=== PATIENT | male | born 1985 | race Caucasian/White ===

== ENCOUNTER 2020-05-19 17:32 | Inpatient (IN) | payer MEDICAID ==
[~2020-05-19] VITALS: Ht 177.8 cm; Wt 104.3 kg
[2020-05-19 17:54] LABS: BASOPHILS # (AUTO) 0.1 /CMM (0.0-0.2); BASOPHILS % (AUTO) 0.6 % (0.0-2.0); EOSINOPHILS % (AUTO) 0.5 % (0.0-6.0); HEMATOCRIT 46 % (39-51); HEMOGLOBIN 15.5 g/dL (13.5-17.5); LYMPHOCYTES # (AUTO) 2.9 /CMM (0.8-4.8); LYMPHOCYTES % (AUTO) 30.3 % (20.0-44.0); MEAN CORPUSCULAR HGB CONC 34 g/dl (31.0-36.0); MEAN CORPUSCULAR VOLUME 85 fL (80-96); MONOCYTES # (AUTO) 0.6 /CMM (0.1-1.30); MONOCYTES % (AUTO) 6.7 % (2.0-12.0); NEUTROPHILS % (AUTO) 61.9 % (43.0-81.0); PLATELET COUNT (AUTO) 271 /CMM (150-450); RED BLOOD CELL COUNT(AUTO) 5.35 MIL/uL (4.5-6.0); WHITE BLOOD COUNT (AUTO) 9.7 K/uL (4.3-11.0)
[2020-05-19 17:55] LABS: BILIRUBIN,URINE Negative (NEGATIVE); COLOR,URINE YELLOW (YELLOW); LEUKOCYTE ESTERASE ,URINE Negative (NEGATIVE); NITRITE, URINE Negative (NEGATIVE); PROTEIN,URINE Negative (NEGATIVE); UGLUCOSE Negative (NEGATIVE); UROBILINOGEN,URINE 0.2 EU/dL (0.2)
[2020-05-19] MEDS ORDERED: IV NS 0.9% 1,000 ML BAG IV ONE (18:00)
--- NOTE | 2020-05-19 18:11 | NUR ---
BIB FROM HOME TO ER BED 12. DROWSY ARROUSABLE WITH STRONG AND PAINFUL STIMULI. AWAKENS BUT GOES BACK TO SLEEP. NOT IN RESP DISTRESS BUT NOTED SATTING @ 88% WHEN HE IS DOZING OFF. PLACED ON O2 VIA NC @ 4LPM SATTING @ 96%. BROUGHT IN BECAUSE PT WAS FOUND PASSED OUT IN THE BATHROOM. PT WAS BROUGHT IN WITH A BOTTLE OF UNKNOWN PILLS BUT AFTER LOOKIN GIT UP THE PILLS WHERE PROTONIX. UPON MD ASSESSMENT, PT VERBALIZED THAT HE TOOK UNKNKOWN AMOUNT OF GABAPENTIN. WHEN ASKED, PT DENIED SUICIDAL IDEATION. PT STATED THAT HE IS ONLY TRYING TO GET SOME SLEEP. PT ARRIVED WITH RFA 18G BY EMS. BLOOD DRAWN AND SENT TO LAB. URINE COLLECTED VIA IN AND OUT CATH W/ PT'S PERMISSION. MEDICATED ORDERED AND PLACED ON MONITOR.
[2020-05-19 18:20] LABS: ALANINE AMINOTRANSFERASE 73 U/L (12-78); ALBUMIN 4.2 g/dL (3.4-5.0); ALCOHOL, BLOOD < 3 mg/dL (0-0); ALKALINE PHOSPHATASE 127 U/L (46-116); ASPARTATE AMINOTRANSFERASE 130 U/L (15-37); BILIRUBIN,DIRECT 0.2 mg/dL (0.0-0.2); BILIRUBIN,TOTAL 0.9 mg/dL (0.2-1.0); CALCIUM, SERUM 9.2 mg/dL (8.5-10.1); CARBON DIOXIDE 27 mmol/L (21-32); CHLORIDE 101 mmol/L (98-107); CREATININE 1.3 mg/dL (0.6-1.3); GLUCOSE 126 mg/dL (74-106); POTASSIUM 3.6 mmol/L (3.5-5.1); SODIUM SERUM 137 mmol/L (136-145); TOTAL PROTEIN, SERUM 8.2 g/dL (6.4-8.2); UREA NITROGEN, BLOOD 16 mg/dL (7-18)
[2020-05-19 18:21] LABS: ACETAMINOPHEN 0 ug/ml (10-30)
--- NOTE | 2020-05-19 18:41 | NUR ---
covid swab done sent to lab
--- NOTE | 2020-05-19 19:46 | NUR ---
pt endorsed to betzy an for tommie
[2020-05-19] MEDS ORDERED: IV NS 0.9% 1,000 ML IV PRN (20:00)
[2020-05-19] MEDS ORDERED: ONDANSETRON HCL/PF 4 MG/2 ML VIAL IVP PRN (20:00)
[2020-05-19 21:57] LABS: ALBUMIN 3.8 g/dL (3.4-5.0); BILIRUBIN,DIRECT 0.2 mg/dL (0.0-0.2); BILIRUBIN,TOTAL 0.9 mg/dL (0.2-1.0); CALCIUM, SERUM 8.5 mg/dL (8.5-10.1); CREATININE 1.1 mg/dL (0.6-1.3); POTASSIUM 3.7 mmol/L (3.5-5.1); TOTAL PROTEIN, SERUM 7.5 g/dL (6.4-8.2)
--- NOTE | 2020-05-19 22:03 | NUR ---
[facility] in [facility] - 05/19/20 at 2203 by RHILOMEN PT REMAINS IN BED, RESTING COMFORTABLY. VSS.
--- NOTE | 2020-05-19 22:03 | NUR ---
PT REMAINS IN BED, RESTING COMFORTABLY. VSS.
--- NOTE | 2020-05-19 23:23 | NUR ---
POISON CONTROL CALLED REGARDING THE PT'S SALICYLATES LEVEL AND CK-MB. WILL CALL BACK REGARDING AN UPDATE.
[2020-05-20] MEDS: IV NS 0.9% 1,000 ML IV PRN ×3 (01:00→19:09)
[2020-05-20 06:15] LABS: BASOPHILS # (AUTO) 0.1 /CMM (0.0-0.2); BASOPHILS % (AUTO) 0.6 % (0.0-2.0); BILIRUBIN,TOTAL 1.2 mg/dL (0.2-1.0); CALCIUM, SERUM 8.9 mg/dL (8.5-10.1); CREATININE 1.1 mg/dL (0.6-1.3); EOSINOPHILS % (AUTO) 0.4 % (0.0-6.0); HEMATOCRIT 46 % (39-51); HEMOGLOBIN 15.3 g/dL (13.5-17.5); LYMPHOCYTES # (AUTO) 2.3 /CMM (0.8-4.8); MEAN CORPUSCULAR HGB CONC 33 g/dl (31.0-36.0); MEAN CORPUSCULAR VOLUME 86 fL (80-96); MONOCYTES # (AUTO) 0.6 /CMM (0.1-1.30); MONOCYTES % (AUTO) 4.3 % (2.0-12.0); NEUTROPHILS % (AUTO) 76.7 % (43.0-81.0); PHOSPHORUS 2.7 mg/dL (2.5-4.9); PLATELET COUNT (AUTO) 202 /CMM (150-450); POTASSIUM 3.9 mmol/L (3.5-5.1); RED BLOOD CELL COUNT(AUTO) 5.39 MIL/uL (4.5-6.0); TOTAL PROTEIN, SERUM 7.6 g/dL (6.4-8.2)
--- NOTE | 2020-05-20 07:16 | NUR ---
PT TRANSFERED. REPORT GIVEN TO KERWIN XIOGN FOR TABATHA.
--- NOTE | 2020-05-20 07:57 | NUR ---
FARM LOAN INSPECTOR OPENING NOTE PATIENT WAS TRANSFERRED FROM ER TO MED-SURG FLOOR. PATIENT IS IN NO ACUTE DISTRESS. PATIENT IS IN BED RESTING. PATIENT IS ON 4L ON NC. NO SOB NOTED. PATIENT IS ON TELE MONITOR READING SR TACHY 107. PATIENT HAS 1:1 SITTER ASSIGNED DUE TO SUICIDAL IDEATIONS. SAFETY PRECAUTIONS ARE IN PLACE. BED IS LOCKED AND IN THE LOWEST POSITION. SIDE RAILS ARE ON, CALL LIGHT WITHIN REACH. WILL CONTINUE TO MONITOR THROUGH OUT THE SHIFT.
[2020-05-20 09:29] LABS: THYROID STIMULATING HORMONE 1.65 uIU/mL (0.358-3.74)
[2020-05-20 20:00] VITALS: BP 104/70
--- NOTE | 2020-05-20 20:19 | NUR ---
MS BUSINESS APPLICATIONS MANAGER CLOSING NOTE PATIENT IS IN BED RESTING. PATIENT IS IN NO ACUTE DISTRESS. NO SOB NOTED. PATIENT IS ON 4L OXYGEN ON NC. PATIENT IS ON TELE MONITOR READING SINUS TACHY SAFETY PRECAUTIONS ARE IN PLACE. BED OS LOCKED AND IN THE LOWEST POSITION. SIDE RAILS ARE ON, CALL LIGHT WITHIN REACH. ENDORSE PATIENT TO NATURALIZATION EXAMINER FOR TABATHA.
--- NOTE | 2020-05-21 02:47 | NUR ---
PEARL MAKER OPENING NOTE: RECEIVED PATIENT IN BED SLEEPING. NO S/S OF RESPIRATORY DISTRESS, ON ROOM AIR, NO SOB, STABLE V/S. PT IS ON 1:1 DUE TO SUICIDAL IDEATION. SAFETY PRECAUTIONS ARE IN PLACE. BED LOCKED AND IN THE LOWEST POSITION. SIDE RAILS UP, CALL LIGHT WITHIN REACH. WILL CONTINUE TO MONITOR THROUGHOUT SHIFT.
[2020-05-21] MEDS: IV NS 0.9% 1,000 ML IV PRN ×3 (03:09→22:03)
[2020-05-21 07:03] LABS: BASOPHILS % (AUTO) 0.3 % (0.0-2.0); EOSINOPHILS % (AUTO) 0.7 % (0.0-6.0); HEMATOCRIT 43 % (39-51); HEMOGLOBIN 14.4 g/dL (13.5-17.5); LYMPHOCYTES # (AUTO) 2.1 /CMM (0.8-4.8); LYMPHOCYTES % (AUTO) 20.1 % (20.0-44.0); MEAN CORPUSCULAR HGB CONC 34 g/dl (31.0-36.0); MEAN CORPUSCULAR VOLUME 86 fL (80-96); MONOCYTES # (AUTO) 0.6 /CMM (0.1-1.30); MONOCYTES % (AUTO) 6.1 % (2.0-12.0); NEUTROPHILS # (AUTO) 7.6 /CMM (1.8-8.9); NEUTROPHILS % (AUTO) 72.8 % (43.0-81.0); PLATELET COUNT (AUTO) 233 /CMM (150-450); RED BLOOD CELL COUNT(AUTO) 5.01 MIL/uL (4.5-6.0); WHITE BLOOD COUNT (AUTO) 10.5 K/uL (4.3-11.0)
[2020-05-21 07:07] LABS: ALBUMIN 3.4 g/dL (3.4-5.0); BILIRUBIN,TOTAL 0.9 mg/dL (0.2-1.0); CALCIUM, SERUM 8.8 mg/dL (8.5-10.1); CREATININE 0.8 mg/dL (0.6-1.3); MAGNESIUM 2.2 mg/dL (1.8-2.4); PHOSPHORUS 2.3 mg/dL (2.5-4.9); POTASSIUM 4.2 mmol/L (3.5-5.1)
--- NOTE | 2020-05-21 07:55 | NUR ---
RETAIL SHIFT LEADER OPENING NOTE PATIENT IS IN BED RESTING. PATIENT IS IN NO ACUTE DISTRESS. NO SOB NOTED. PATIENT IS 4L OXYGEN ON NC. PATIENT IS ON TELE MONITOR READING SR 62. SAFETY PRECAUTIONS ARE IN PLACE. BED IS LOCKED AND IN THE LOWEST POSITION. SIDE RAILS ARE ON, CALL LIGHT WITHIN REACH. WILL CONTINUE TO MONITOR THROUGH OUT THE SHIFT.
--- NOTE | 2020-05-21 08:05 | NUR ---
KINDERGARTEN TEACHER CLOSING NOTE: PATIENT IN BED A/O X3. NO S/S OF RESPIRATORY DISTRESS, ON ROOM AIR, NO SOB, STABLE V/S. PT IS ON 1:1 SITTER DUE TO SUICIDAL IDEATION. SAFETY PRECAUTIONS ARE IN PLACE. BED LOCKED AND IN THE LOWEST POSITION. SIDE RAILS UP, CALL LIGHT WITHIN REACH. WILL CONTINUE TO MONITOR THROUGHOUT SHIFT.
[2020-05-21 10:00] VITALS: BP 136/76
[2020-05-21] MEDS ORDERED: NEUTRA PHOS 1 POWD.PACKET PO ONE (11:00)
[2020-05-21] MEDS ORDERED: LORAZEPAM 1 MG TABLET PO PRN (13:00)
[2020-05-21] MEDS: NICOTINE PATCH (21MG) 21 MG PATCH.TD24 TD SCH (13:45)
[2020-05-21] MEDS: DULOXETINE HCL 30 MG CAPSULE.DR PO SCH (13:45)
[2020-05-21] MEDS: LORAZEPAM 1 MG TABLET PO PRN (17:10)
--- NOTE | 2020-05-21 19:05 | NUR ---
MAINTENANCE ELECTRICIAN CLOSING NOTE PATIENT IS IN BED RESTING. PATIENT IS IN NO ACUTE DISTRESS. NO SOB NOTED. PATIENT IS ON OXYGEN 2L, CAN BE WITHOUT OXYGEN SATURATION IS 96% ON ROOM AIR. PATIENT IS ON TELE MONITOR READING SR 65. SAFETY PRECAUTIONS ARE IN PLACE. BED OS LOCKED AND IN THE LOWEST POSITION. SIDE RAILS ARE ON, CALL LIGHT WITHIN REACH. ENDORSE PATIENT TO FIBROUS PLASTERER FOR TABATHA.
--- NOTE | 2020-05-21 20:00 | NUR ---
MS RN OPENING NOTE: RECEIVED PATIENT IN BED SLEEPING. NO S/S OF RESPIRATORY DISTRESS, NO SOB, STABLE V/S. PT IS ON 1:1 DUE TO SUICIDAL IDEATION. SAFETY PRECAUTIONS ARE IN PLACE. BED LOCKED AND IN THE LOWEST POSITION. SIDE RAILS UP, CALL LIGHT WITHIN REACH. WILL CONTINUE TO MONITOR THROUGHOUT SHIFT.
[2020-05-21 20:30] VITALS: BP 90/52
[2020-05-21] MEDS ORDERED: QUETIAPINE FUMARATE 100 MG TABLET PO SCH (22:00)
[2020-05-21] MEDS: QUETIAPINE FUMARATE 100 MG TABLET PO SCH (22:48)
[2020-05-22 00:30] VITALS: BP 108/77
[2020-05-22] MEDS: LORAZEPAM 1 MG TABLET PO PRN ×3 (03:56→16:19)
[2020-05-22 04:00] VITALS: BP 140/77
--- NOTE | 2020-05-22 07:00 | NUR ---
DURABLE MEDICAL EQUIPMENT TECHNICIAN CLOSING NOTE: PATIENT IN BED A/O X3. NO S/S OF RESPIRATORY DISTRESS, ON ROOM AIR, NO SOB, STABLE V/S. PT IS ON 1:1 SITTER DUE TO SUICIDAL IDEATION. SAFETY PRECAUTIONS ARE IN PLACE. BED LOCKED AND IN THE LOWEST POSITION. SIDE RAILS UP, CALL LIGHT WITHIN REACH. WILL CONTINUE TO MONITOR AND ENDORSE TO AM SHIFT.
[2020-05-22] MEDS: DULOXETINE HCL 30 MG CAPSULE.DR PO SCH (09:12)
[2020-05-22] MEDS: NICOTINE PATCH (21MG) 21 MG PATCH.TD24 TD SCH (09:12)
--- NOTE | 2020-05-22 11:40 | NUR ---
ROSALINA received a call from Commercial Maintenance Technician Pedro regarding this patient. MOHAN Vasquez informed this SW that the patient is requesting a drug rehab referral. SW to follow-up with patient's request. ROSALINA remains available for all needs regarding this patient.
--- NOTE | 2020-05-22 12:43 | NUR ---
ROSALINA spoke with Home Sales Service Professional Quentin Monge LCSW [phone] regarding Crisis team evaluation. Art confirmed with this SW that he is on his way for further evaluation.
[2020-05-22] MEDS ORDERED: QUET100T PO (13:01)
[2020-05-22] MEDS ORDERED: NICO-677 TD (13:01)
[2020-05-22] MEDS ORDERED: DULO30CA2 PO (13:01)
--- NOTE | 2020-05-22 13:05 | NUR ---
12pm ROSALINA met with the patient at bedside. SW followed up regarding MOHAN Vasquez's request of drug rehab. Patient is a 34 year-old male. Patient initially presented to [facility] ED from a sober living facility where patient intentionally took large amounts of Gabapentin. Patient is alert and oriented x4. Patient reported to this SW that he is currently living with his father [address] [address]. Patient reports to be independent in IADL's and ADL's. Patient reports that he took Xanax and his friends became concerned and called 911. Patient reported to this SW that he has been diagnosed with Anxiety and Depression around the age of 16. Patient denied any psychiatric hospitalizations. Patient reports that he has been medically compliant up until 5 days ago (05/17/2020). Patient reports that he goes to a low-cost clinic in [facility] once a month for his psychiatric medications. Patient does not report seeing an ongoing therapist or psychiatrist. Patient denied SI and HI. Patient denied auditory and visual hallucinations. Patient denied the use of alcohol. Patient reported the use of Amphetamine "right before I came here". Patient denied the use of other drugs however patient labs reported that patient tested positive for Benzodiazepines and Cannabinoids. Patient does report that he undergoes Suboxone treatment. Patient is agreeable to be referred to [facility] for his drug use however patient does not agree to voluntary psychiatric hospitalization for the intentional overdose on Gabapentin. Per Dr. Betts (psychiatrist) patient needs to be evaluated by Pigment And Lacquer Mixer assembler convertible top. Plan: ROSALINA to follow-up with sleeping car porter Jina regarding patient's medical clearance for Pigment And Lacquer Mixer to be called to further evaluate this patient. ROSALINA remains available for all needs regarding this patient.
--- NOTE | 2020-05-22 13:17 | NUR ---
12:15pm SW confirmed with flake or shred roll operator Jina that patient is medically cleared for Associate Professor Of Biblical Studies evaluation. SW to follow-up with Associate Professor Of Biblical Studies on-call.
--- NOTE | 2020-05-22 13:18 | NUR ---
Master Rigger Quentin Monge, CRISTIANO [phone] was notified regarding this evaluation. ROSALINA also informed junior programmer Jina Master Rigger will evaluate the patient. ROSALINA remains available for all needs regarding this patient.
--- NOTE | 2020-05-22 13:21 | NUR ---
ROSALINA began the referral process for patient to receive drug treatment at [facility]. ROSALINA faxed clinicals and referral sheet to [facility] per patient's request [phone]. ROSALINA remains available for all needs regarding this patient.
--- NOTE | 2020-05-22 14:10 | NUR ---
ROSALINA called [facility] Intake line [phone] regarding the status of this referral. ROSALINA left a message for ROSALINA Adams to follow-up regarding this patient.
--- NOTE | 2020-05-22 14:20 | NUR ---
ROSALINA spoke with Santino [phone] regarding this patient. Santino informed this SW that at this time [facility] does not have availability for detox and Suboxone treatment. Santino informed this SW that this SW would need to follow-up regarding bed status for this patient. ROSALINA will notify patient and will make an additional plan for discharge.
--- NOTE | 2020-05-22 14:30 | NUR ---
SW spoke with patient regarding status update regarding [facility]. Patient understood and patient would like to go to [facility]. Patient reporting active SI and would like to undergo voluntary psychiatric hospitalization. Plan: SW to follow-up with Manny at [facility] regarding this referral [phone] as patient expressed receiving Suboxone treatment. ROSALINA will inquire with Manny if [facility] provide this treatment as well. ROSALINA remains available for all needs regarding this patient.
--- NOTE | 2020-05-22 14:45 | NUR ---
ROSALINA followed up with Manny at [facility] [phone] and Manny informed this SW that [facility] does provide Suboxone treatment. ROSALINA notified Manny patient is to be discharged today and Manny expressed understanding and will place a biggs on the status of this referral. Plan: ROSALINA to fax clinicals to [facility] intake [phone]. ROSALINA remains available for all needs regarding this patient.
--- NOTE | 2020-05-22 15:25 | NUR ---
This SW received a call from patient's father John [phone] wanting an update regarding this patient's discharge plan. SW unable to provide an update at this time as patient has not provided verbal consent to provide information. SW to follow-up with the patient and provide an update to John is patient consents.
--- NOTE | 2020-05-22 15:27 | NUR ---
Patient provided verbal consent to this SW to provide patient's father John with information [phone]. SW called John and provided discharge information plan. SW notified John that the patient was referred to [facility] for voluntary psychiatric hospitalization with Suboxone treatment. John asked this SW regarding patient belongings, SW unable to provide that information to him and transferred John to nursing staff who could provide that update. SW remains available for all needs regarding this patient.
--- NOTE | 2020-05-22 15:31 | NUR ---
SW notified Pound Attendant Pedro regarding discharge plan for this patient. SW and Case Management to provide a safe and proper discharge for this patient. SW remains available for all needs regarding this patient.
--- NOTE | 2020-05-22 16:51 | NUR ---
This ROSALINA spoke with Sara at [facility] Intake [phone] per Sara patient clinicals are under review. ROSALINA provided Sara with Raw Shellfish Preparer Pedro contact information [phone] for a safe and proper discharge to [facility] .
--- NOTE | 2020-05-22 16:53 | NUR ---
ROSALINA met with the patient to provide homeless patient resources which patient was hesitant to accept at first, however accepted them. ROSALINA informed patient that he would need to follow-up with [facility] regarding the status of his referral. ROSALINA had patient sign homeless patient waiver form and placed it in patient's chart. SW remains available for all needs regarding this patient. Resources provided to the patient are the following: Substance Abuse resources provided included: [facility] Substance Abuse Self-Helpline ([facility]) ; CRI -HELP [address] [facility] [place]. [place] [address] ; [facility] [address] [facility] [address] ; [facility] [address] [place] [address] ; [facility]ically [facility] [address] [facility] [phone] ; [facility] [address] [place] [facility] [phone] ; [facility] [address] [facility] [phone] ; [facility] Substance Abuse Helpline([facility] ; [facility] ; [facility]; [facility] [place]; C[facility]Help [place]; [facility] Juaquin briana; [facility] [place]; [place] [place]; [facility], [facility]. [place]; Alcoholics Anonymous -SFV; Jw-Blhs-Zpesogs ; Marijuana Anonymous -SFV; Narcotics Anonymous www.na.org. Hygiene: [facility]: [address]. [place] ; [facility] [address] [facility] ; [facility] 7[address] [facility] . Food Resources: [place] [facility] at [facility]- [address]. [place]; Meet Each Need with Dignity ([facility]) [address] [facility]; [facility] Food [facility] 43[address] [facility]; [facility] [address] Augustina Caalka. Mental Health resources provided: [facility] [address] [place], [place] [phone] ; [facility] [address] [facility] [address], [place], [place] [id number] ; [facility] [address] [facility] [place], [place] [phone] ; [facility] [address] [place], [place] [phone] Healthcare Clinics: [facility] [address] [facility], [address] [place]. [place] ; [facility] [address] [facility] [address] [place] [address]; [facility] [address] [facility]. [place] [phone] Winter Shelters: [facility] [place] [facility] [address], [place] [address] ; [facility] [place] AV [facility] [address], [place], [address] ; [facility] [place]* [facility] ; [facility] [place] [facility] [address] [address] ; [facility] [place] [address], [place], [address] ; [facility] 5[address] [facility] [address] ; First To Serve* [facility] 7600 [facility], [address] ; [facility] [address] [facility] [facility], [phone] ; Home [facility] Last [address], [phone] ; [facility] [address], [place], [address] ; Home [facility] Last [address], [address] ; Home at Last [facility] [address] [place] [facility], [address] ; Home At Last [facility] [address] , [address] ; [facility] [place] * Library [address] [place] [facility] [address] ;
--- NOTE | 2020-05-22 17:42 | NUR ---
MS/RN OPENING NOTE RECEIVED PATIENT FROM FRONT DESK ATTENDANT. PATIENT A/O X3-4 AWAKE IN BED. PATIENT ON ROOM AIR, TOLERATING WELL. BREATHING EVEN, NON LABORED. RIGHT WRIST SL FELL OFF PER PATIENT. NEW IV SITE STARTED. L WRIST #22 INTACT AND PATENT. NO ACUTE DISTRESS AT THE MOMENT. SAFETY MEASURES IN PLACE, SITTER AT BESIDE, BED LOCKED AND IN LOWEST POSITION, CALL LIGHT WITHIN REACH. WILL CONTINUE TO MONITOR AND ENSURE SAFETY.
--- NOTE | 2020-05-22 18:30 | NUR ---
MS/RN CLOSING NOTE RECEIVED PATIENT FROM RN FIELD. PATIENT A/O X3-4 AWAKE IN BED. PATIENT ON ROOM AIR, TOLERATING WELL. BREATHING EVEN, NON LABORED. L WRIST #22 INTACT AND PATENT. NO ACUTE DISTRESS AT THE MOMENT. ATIVAN WAS GIVEN AT 1019 AND 1619. SAFETY MEASURES IN PLACE, BED LOCKED AND IN LOWEST POSITION, CALL LIGHT WITHIN REACH. WILL CONTINUE TO MONITOR AND ENSURE SAFETY.
--- NOTE | 2020-05-22 19:30 | NUR ---
travel sales consultant opening notes Pt is resting in bed comfortably. Pt is alert and orientedX3. Respiration is normal in room air. No SOB. No S/S of distress noted. IV site at L wrist # 22 is clean, intact and SL. Pt denies SI/HI at this time. Pt has no sitter at the bedside. Safety precautions is maintained. Bed at low position, brakes locked, side rails upX2 and call light is within reach. Will continue to monitor.
[2020-05-22 20:40] VITALS: BP 108/63
[2020-05-22] MEDS: QUETIAPINE FUMARATE 100 MG TABLET PO SCH (21:35)
[2020-05-23] VITALS: BP 104/40
[2020-05-23 00:10] VITALS: BP 104/40
[2020-05-23] MEDS: LORAZEPAM 1 MG TABLET PO PRN ×2 (03:15→09:31)
--- NOTE | 2020-05-23 03:17 | NUR ---
inside sales person notes Pt's feeling anxious and requesting ativan. Administered ativan 1 mg/ 2 tabs/po/prn as ordered for anxiety. Safety precautions is maintained. Will continue to monitor.
[2020-05-23 04:25] VITALS: BP 104/44
--- NOTE | 2020-05-23 06:56 | NUR ---
parts runner closing notes Pt is resting in bed comfortably. Pt is alert and orientedX3. Respiration is normal in room air. No SOB. No S/S of distress noted. VS is stable. Afebrile. Pt denies SI/HI at this time. IV site at L wrist # 22 is clean, intact and SL. Kept Pt clean, dry and comfortable. Safety precautions is maintained. Bed at low position, brakes locked, hob elevated, side rails upX2 and call light is within reach. Will endorse to morning nurse for TABATHA.
--- NOTE | 2020-05-23 07:42 | NUR ---
TELE/RN OPENING NOTES RECEIVED PATIENT ON BED AWAKE ALERT AND ORIENTED X4. PATIENT IN NO APPARENT RESPIRATORY DISTRESS NOTED. NO COMPLAINED OF PAIN. ON TELE MONITOR READING SINUS RHYTHM 63 BPM. WILL CONTINUE TO MONITOR.
[2020-05-23 08:00] VITALS: BP 109/95
[2020-05-23] MEDS: DULOXETINE HCL 30 MG CAPSULE.DR PO SCH (08:10)
[2020-05-23] MEDS: NICOTINE PATCH (21MG) 21 MG PATCH.TD24 TD SCH (08:10)
--- NOTE | 2020-05-23 08:41 | NUR ---
SW received accepting information from [facility]. Patient has been accepted under the care of Dr. Rubin and Dr. Baumann. Nurse to nurse report number is [phone]. SW will contact patient's nurse to provide this information and SW will coordinate with Case Management team for safe and proper discharge.
--- NOTE | 2020-05-23 11:52 | NUR ---
RN NOTES PATIENT IS ALERT AND ORIENTED X4. PATIENT IN NO APPARENT RESPIRATORY DISTRESS NOTED. NO COMPLAINED OF PAIN NOTED. PATIENT WAS GIVEN DISCHARGED INSTRUCTIONS AND PATIENT VERBALIZED UNDERSTANDING. PATIENT LEFT THE HOSPITAL IN MEDICALLY STABLE CONDITION, RN BURN BY 2 EMT VIA AMBULANCE. REPORT WAS GIVEN TO LUCIO XIONG IN [facility].
== END 2020-05-23 11:42 | DRG 812 ==
LOC: ER 17:39 → EDBD 20:57 → TRANSITION 20:57 → TELE 05-20 02:19
PROVIDERS: ADMIT Nurse Practitioner Acute Care
DX: T50.992A Poisoning by other drugs, medicaments and biological substances, intentional self-harm, initial encounter (principal); G92 Toxic encephalopathy; J96.01 Acute respiratory failure with hypoxia; F33.2 Major depressive disorder, recurrent severe without psychotic features; F13.239 Sedative, hypnotic or anxiolytic dependence with withdrawal, unspecified; Z68.33 Body mass index [BMI] 33.0-33.9, adult; E66.9 Obesity, unspecified; R73.9 Hyperglycemia, unspecified; Y92.89 Other specified places as the place of occurrence of the external cause; F13.139 Sedative, hypnotic or anxiolytic abuse with withdrawal, unspecified; Z20.822 Contact with and (suspected) exposure to COVID-19; F19.10 Other psychoactive substance abuse, uncomplicated
CPT/HCPCS: 36415; 71045-TC; 80048-TC; 80053-TC; 80061-TC; 80076-TC; 82550-TC; 82553; 83605-TC; 83735-TC; 84100-TC; 84443-TC; 84484-TC; 85025-TC; 85730-TC; 87081-TC; 87086-TC; C9803; G0378; G0480; J7030; J7042